=== PATIENT | female | born 1965 | race Caucasian/White ===

== ENCOUNTER 2016-10-15 12:08 | Emergency (ER) | payer OTHER ==
[~2016-10-15] VITALS: Ht 160 cm; Wt 59.0 kg
[~2016-10-15 12:08] MED LIST: AUGMENTIN 875875 MG PO; LEVOTHYROXINE 0.1 MG PO; MUCINEX TA600 MG/TA2 PO; PHENERGAN 25 MG25 M1 PO; TRAMADOL 50 MG50 MG PO; TRAZODONE HCL50 MG PO
[2016-10-15 13:25] VITALS: BP 101/62
== END 2016-10-15 13:49 | disposition home or self-care (01) ==
LOC: ER 12:08
DX: S06.0X0A Concussion without loss of consciousness, initial encounter (principal); X58.XXXA Exposure to other specified factors, initial encounter; Y93.43 Activity, gymnastics; Y92.89 Other specified places as the place of occurrence of the external cause; Y99.8 Other external cause status

== ENCOUNTER 2020-06-24 07:01 | Inpatient (IN) | payer OTHER ==
[~2020-06-24] VITALS: Ht 160 cm; Wt 59.0 kg
[2020-06-24] VITALS (9 sets, daily range): BP systolic 92–122; BP diastolic 53–72
--- NOTE | ~2020-06-24 | O ---
[facility] [place] [address] OPERATIVE REPORT Name: JARED IBRAHIM Room #: 454-P ADM IN M.R.#: [id number] Admission: 06/24/20 Attend Phys: Osorio Grace, Discharge: Date of : 67 Report #: [id number] THIS REPORT FOR: cc: JUAN WILSON MD Physician not on staff Osorio Grace MD ~ DOC #: [id number] Osorio Grace MD DATE OF SERVICE: 06/24/2020 PREOPERATIVE DIAGNOSIS: Acute appendicitis. POSTOPERATIVE DIAGNOSIS: Acute perforated appendicitis. PROCEDURE: Laparoscopic appendectomy. SURGEON: Osorio Grace MD TYPE OF ANESTHESIA: General. ESTIMATED BLOOD LOSS: Minimal. SPECIMENS: Appendix. DESCRIPTION OF PROCEDURE: After informed consent was obtained, the patient was brought to the operating room and placed supine. SCDs were placed and working. Preoperative antibiotics were administered. General anesthesia was induced. The abdomen was prepped and draped in the usual sterile fashion. A 10 mm incision was made below the umbilicus. The fascia was incised and a trocar was placed. Pneumoperitoneum was established. Right upper quadrant, left lower quadrant 5 mm trocars were placed. The appendix was grasped and retracted anteriorly. A window was made in the mesoappendix. The appendix was perforated at its tip. The base of the appendix was stapled with a DELMY blue load stapler and the mesoappendix was ligated using the DELMY carpio load stapler. There was good hemostasis. The appendix was then placed into an Endopouch and removed. The fascia was then closed with a [id number]-nwchc 0 Vicryl. Skin was closed with 4-0 Monocryl. The incisions were sealed with Steri-Strips. COMPLICATIONS: None. DISPOSITION: The patient was taken to Recovery in satisfactory condition. MD XENIA Snyder/GE/GARY [address] [address] OPERATIVE REPORT Name: JARED IBRAHIM Room #: 454-P [facility] IN [facility]#: [id number] Admission: 06/24/20 Attend Phys: Osorio Grace, Discharge: Date of : 67 Report #: [id number] By: 1107 [id number] Osorio Grace MD /sara
[2020-06-24] MEDS ORDERED: LUNESTA3 MG PO (07:15)
[2020-06-24] MEDS ORDERED: MAGNESIUM PO (07:15)
[2020-06-24] MEDS ORDERED: [UNRECOGNIZED DRUG - OTHER] PO (07:15)
[2020-06-24] MEDS ORDERED: TUDCA PO (07:16)
[2020-06-24] MEDS ORDERED: PHYTOCERAMIDES PO (07:16)
[2020-06-24] MEDS ORDERED: [UNRECOGNIZED DRUG - OTHER] PO (07:17)
[2020-06-24 07:22] LABS: URINE BLOOD 3+ (Negative); URINE CLARITY CLEAR; URINE COLOR YELLOW; URINE GLUCOSE-RANDOM* NEGATIVE (Negative); URINE KETONES 3+ (Negative); URINE LEUKOCYTES-REFLEX NEGATIVE (Negative); URINE NITRITE-REFLEX NEGATIVE (Negative); URINE PROTEIN (DIPSTICK) TRACE (Negative); URINE SPECIFIC GRAVITY >= 1.030 (1.005-1.035); URINE UROBILINOGEN 0.2 E.U./dl (0.2-1.0)
[2020-06-24 07:24] LABS: ICTOTEST (BILI CONFIRMATORY) Negative (Negative); URINE BILIRUBIN NEGATIVE (Negative)
[2020-06-24 07:29] LABS: URINE REDUCING SUBSTANCE NEGATIVE
[2020-06-24 07:46] LABS: HEMOGLOBIN 14.1 gm/dL (12.0-15.0)
[2020-06-24 07:47] LABS: ABSOLUTE NEUTROPHILS 9.2 thou/uL (1.4-8.2); BASOPHILS 0.4 % (0.0-2.0); HEMATOCRIT 41.4 % (37.0-47.0); LYMPHOCYTES 6.7 % (24.0-44.0); MCH 32.1 pg (26.0-34.0); MCV 94.2 fL (80.0-100.0); MONOCYTES 7.3 % (1.0-8.0); PLATELET COUNT 163 thou/uL (150-400); POLYS 85.6 % (36.0-66.0); RDW 13.5 % (10.5-14.5); WBC 10.8 thou/uL (4.0-11.0)
[2020-06-24] MEDS ORDERED: TIROSINT-S150 MCG/1 PO (07:50)
[2020-06-24 07:51] LABS: CREATININE 0.9 mg/dL (0.6-1.0); POTASSIUM 4.7 mmol/L (3.5-5.1)
[2020-06-24 07:57] LABS: ALBUMIN 3.8 g/dL (3.4-5.0); TOTAL BILIRUBIN 2.3 mg/dL (0.2-1.0); TOTAL PROTEIN 7.2 g/dL (6.4-8.2)
[2020-06-24 08:37] LABS: CASTS None Seen /LPF (None Seen); CRYSTALS None Seen /LPF (None Seen); SQUAMOUS 4-10 Moderate /LPF (0-3)
[2020-06-24 08:38] LABS: BACTERIA-REFLEX 1-9 Few /HPF (None Seen); URINE RBC 3-10 Few /HPF (NONE SEEN)
[2020-06-24 08:39] LABS: URINE WBC-REFLEX 0-5 Rare /HPF (0-5)
[2020-06-24] MEDS ORDERED: NORCO5 PO (12:07)
--- NOTE | 2020-06-24 20:39 | NUR ---
ASSUMED PT CARE AROUND 1300. PT HAD LAPROSCOPIC APPENDECTOMY, 3 LAP SITES. VSS.IV RT AC WITH NS RUNNING AT 100MLS/HR.ALLERGIC TO GLUTEN. WAS IN THE ROOM. A X O X 4. ON ROOM AIR. FALL PRECAUTION IN PLACE. SCDS ON. FALL PRECAUTION IN PLACE. ALVARADO LIGHT IN REACH. HOURLY ROUNDING DONE.
--- NOTE | 2020-06-25 05:46 | NUR ---
PT HAD QUIET NOC. NO C/O PAIN THRU NOC.IV ABT STARTED PT REQUESTED A PO PRN GAVE 5/325 ORDERED. WILL CONTINUE TO MONITOR.
[2020-06-25 07:45] VITALS: BP 85/47
[2020-06-25] MEDS ORDERED: HYDROCODON-ACE1 EAC7 PO (10:02)
[2020-06-25] MEDS ORDERED: AUGMENTIN 875-1 EACH PO (10:03)
[2020-06-25] MEDS ORDERED: MIRALAX119 GM PO (10:03)
[2020-06-25 10:09] VITALS: BP 85/47
--- NOTE | 2020-06-25 13:26 | NUR ---
ASSUMEE PATIENT CARE AT 0700. A/O X4. AMBULATED IN [address]. SLOWLY TOWARDS POC GOALS.. DC TO HOME NOW.
--- NOTE | 2020-06-25 14:11 | NUR ---
PT ADMITTED RELATED TO LAPROSCOPIC APPENDECTOMY. CM REVIEWED CHART AND SPOKE WITH CARE TEAM. CM MET WITH PT AT BEDSIDE THIS DAY. PT CONFIRMED THAT SHE IS PATIENT PAY AND HAD BEEN GIVEN A KAREN APPLICATION. PT INDICATED SHE RESIDES IN A HOUSE WITH HER SPOUSE WITH 2 STEPS TO ENTER AND A FULL FLIGHT TO THE BASEMENT. PT INDICATED NO DME AND HAD BEEN INDEPDENET WITH GAIT AND ADLS. PT INDCIATED SHE COULD FILL ANY MEDS PERSCRIBED UPON DC. CARE TEAM INDICATED MEDICALLY STABLE TO DC HOME THIS DAY. NO OTHER CM INTERVENTION INDICATED. CASE CLOSED.
--- NOTE | 2020-06-26 18:06 | PATH ---
[facility] [address] [place] [address] PATHOLOGY RPT PROCEDURE Name: JARED IBRAHIM Room #: 454-P [facility] IN M.R.#: [id number] Admission: 06/24/20 Date of : 67 Discharge: 06/25/20 Report #: [id number] Path Case #: [id number] [facility] Accession Number: [id number] . 01 Material submitted: . appendix - APPENDIX . 02 Diagnosis: Appendix, appendectomy: - Marked acute appendicitis as well as acute serositis. (IUV/db; 06/26/2020) LBQ 06/26/2020 1313 Local . 02 Electronically signed: . Nava Rios MD, Pathologist NPI- [id number] . 01 Gross description: . Fixative: Formalin Labeled: Appendix Appendix length: 6.0 cm Appendix diameter: Up to 0.9 cm Mesoappendix: 1.0 cm Proximal margin: Stapled Serosa: Vaughn-dennis to red-brown with a slight amount of overlying exudate Cut surface: Pinpoint to patent lumen Luminal diameter: Up to 0.3 cm Perforation: None identified Lesions/abnormalities: None identified . Proximal margin and bisected tip in cassette A1. Additional business services sales representative cross-sections in cassette A2. (CAA; 06/25/2020) QA/QA 06/25/2020 1533 Local . 02 Pathologist provided ICD-10: K35.20 . 02 CPT . 686219 Specimen Comment: A courtesy copy of this report has been sent to [phone] Specimen Comment: Report sent to Performed at: [address] [id number] MD Arya Allen MD Phone: [phone] Performed at: [address] [address] PATHOLOGY RPT PROCEDURE Name: YURYCHANOJARED Room #: 454-P [facility] IN [facility]#: [id number] Admission: 06/24/20 Date of : 67 Discharge: 06/25/20 Report #: [id number] Path Case #: [id number] [address] [id number] MD Nava Rios MD Phone: [phone]
== END 2020-06-25 13:27 | disposition home or self-care (01) | DRG 340 ==
LOC: ER 07:01 → EROBS 09:09 → 4W 11:11
PROVIDERS: Emergency Medicine; ADMIT Surgery; ATTEND Surgery
PROC: 0DTJ4ZZ Resection of Appendix, Percutaneous Endoscopic Approach (ICD-10-PCS; principal; 2020-06-24)
DX: K35.32 Acute appendicitis with perforation, localized peritonitis, and gangrene, without abscess (principal); Z20.822 Contact with and (suspected) exposure to COVID-19; Z79.899 Other long term (current) drug therapy
CPT/HCPCS: 10040; 50010; 50411; 50555; 50739; 50740; 51297; 51489; 52265; 52266; 53307; 53312; 53314; 56462; 58574